=== PATIENT | female | born 1950 | race Caucasian/White ===

== ENCOUNTER 2018-03-22 09:26 | Observation (INO) ==
--- NOTE | 2018-03-22 09:43 | Emergency Department Note ---
Disposition Clinical Impression: Hypoglycemia Disposition: Admitted As Inpatient Condition: Fair Referrals: Radha Liriano [Primary Care Provider] - Forms: ED Satisfaction Letter, Work/School Release Time of Disposition: 10:15 General Adult HPI - General Chief complaint: ED General Medical Stated complaint: TIA/blood sugar Time Seen by Provider: 03/22/18 09:30 Source: patient, EMS Limitations: no limitations Nursing Notes Reviewed: Yes Vital Signs Reviewed: Yes - History of Present Illness HPI Narrative: Ms. Rocha woke up this morning urinated and had a bowel movement which was normal for her. She was eating breakfast and began to feel very nauseated. She did not have jeane emesis but does describe some regurgitation. No dizziness no lightheadedness no diaphoresis no shortness of breath. She remembers that she was in bed being helped up by her son and then the EMS personnel coming to transport her to the emergency department. At that point she had some heavy chest pain midsternum in the lower part of her chest. No radiation to either shoulder or neck and back or abdomen. This feature was elicited on direct questioning. She is new to [place] just moved here having been discharged from [facility] for a TIA from which she regained all functioning is able to walk normally. She has been on no new medications. 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 Denies: fever, chills Eyes: Denies: vision change ENT ED: Denies: dysphagia Cardiovascular: Reports: chest pain. Denies: palpitations Respiratory: Denies: cough, dyspnea Gastrointestinal: Reports: nausea, vomiting. Denies: abdominal pain, diarrhea, melena, hematochezia Genitourinary: Denies: urgency, dysuria, frequency Musculoskeletal: Denies: back pain, neck pain, arthralgia Neurological: Denies: headache Endocrine: Reports: fatigue Hematological/Lymphatic: Denies: easy bruising Past Medical History - Past Medical History Medical history: Reports: diabetes, hyperlipidemia, hypertension, TIA Psychiatric history: Reports: depression WOOD TREATING INSPECTOR history: Reports: no WOOD TREATING INSPECTOR history - Social History Smoking Status: Never smoker Smokeless Tobacco Status: No Alcohol use: Reports: none Drug use: Reports: none Physical Exam - General Limitations: no limitations General appearance: alert, in no apparent distress - Head Head exam: atraumatic, normocephalic - Eye Eye exam: Present: normal appearance, PERRL, EOMI - ENT ENT exam: normal oropharynx, mucous membranes moist, normal external ear exam - Neck Neck exam: Present: normal inspection, other (Supple). Absent: lymphadenopathy - Chest Chest inspection: Present: normal inspection, symmetric chest wall rise, tenderness (Mild pain to palpation mid sternum but she does not believe this reproduces the feeling of chest discomfort that she reports) - Respiratory Respiratory exam: Present: normal lung sounds bilaterally. Absent: respiratory distress, wheezes, stridor - Cardiovascular Cardiovascular exam: Present: regular rate, normal rhythm, normal heart sounds. Absent: systolic murmur, diastolic murmur - Abdominal Exam Abdominal exam: Present: soft, Non-Tender. Absent: distention, guarding, rebound, rigidity - Extremities Exam Extremities exam: Present: normal inspection. Absent: pedal edema - Neurological Exam Neurological exam: Present: alert, oriented X3, CN II-XII intact. Absent: motor sensory deficit - Psychiatric Psychiatric exam: Present: normal affect, normal mood Course Vital Signs Temperature 97.6 F 03/22/18 09:33 Pulse Rate 63 03/22/18 09:33 Respiratory Rate 18 03/22/18 09:33 Blood Pressure 166/106 03/22/18 09:33 O2 Sat by Pulse Oximetry 100 03/22/18 09:33 Temperature 97.6 F 03/22/18 09:33 Pulse Rate 64 03/22/18 10:04 Respiratory Rate 17 03/22/18 10:04 Blood Pressure 139/70 03/22/18 10:04 O2 Sat by Pulse Oximetry 97 03/22/18 10:04 Oxygen Delivery Oxygen Delivery Room Air Medical Decision Making - MDM Narrative Medical decision making narrative: Hypoglycemia. She is on glipizide ER which might help run the interventions to restore her blood sugar which was 103 shortly after arrival. She is alert and awake. Prudent to observe her and titrate diabetic medication. I spoke with the VEGETABLE INSPECTOR covering his hospitalist here at [place] and presented the case. He accepted admission. She is in improved condition awaiting transfer to the floor. Chest pain. This dissipated to almost negligible when I reassessed her. EKG does have some evidence of ischemia but I do not have any comparison. It might be prudent to cycle her troponins during her period of observation. Bradycardia. She was on metoprolol. We might want to consider cutting that dose on admission and check her heart rate. - Lab Data Lab results reviewed: Yes I reviewed the patient's lab results. Result diagrams: 03/22/18 09:47 03/22/18 09:47 Lab Results 03/22/18 03/22/18 03/22/18 Range/Units 09:47 09:47 09:47 WBC 6.7 (4.3-11.1) K/mcL RBC 4.00 (3.82-4.97) M/mcL Hgb 12.1 (11.5-15.4) g/dL Hct 34.9 L (35.3-44.9) % MCV 87.3 (83.0-100.0) fL MCH 30.3 (28.0-33.3) pg MCHC 34.7 (31.6-35.5) g/dL RDW 12.1 (11.5-14.5) % Plt Count 179 (140-400) K/mcL MPV 11.5 (9.4-12.4) fL Immature Gran % 0.3 (0-4) % Seg Neutrophils % 74.4 % Lymphocytes % 18.6 % Monocytes % 5.6 % Eosinophils % 0.7 % Basophils % 0.4 % Neutrophils # 5.0 (1.6-8.9) K/mcL Lymphocytes # 1.3 (0.6-4.6) K/mcL Monocytes # 0.4 (0.0-1.3) K/mcL Eosinophils # 0.1 (0.0-0.6) K/mcL Basophils # 0.0 (0.0-0.2) K/mcL PT 11.3 (9.4-12.1) Seconds INR 1.0 APTT 35.9 (26.0-36.0) Seconds Sodium (136-145) mEq/L Potassium (3.5-5.1) mEq/L Chloride (98-107) mEq/L Carbon Dioxide (23-29) mEq/L BUN (8-23) mg/dL Creatinine (0.60-1.20) mg/dL Est GFR ( Amer) (> 60) Est GFR (Non-Af Amer) (> 60) BUN/Creatinine Ratio (6-26) Glucose (70-105) mg/dL Calculated Osmolality (280-300) Calcium (8.6-10.3) mg/dL Magnesium (1.6-2.6) mg/dL Total Bilirubin (0.3-1.0) mg/dL AST (13-39) Units/L ALT (7-52) Units/L Alkaline Phosphatase (34-104) Units/L Troponin I < 0.03 (< 0.04) ng/mL Serum Total Protein (6.4-8.9) g/dL Albumin (3.5-5.7) g/dL Globulin (2.4-3.5) g/dL Albumin/Globulin Ratio (1.1-2.2) 03/22/18 Range/Units 09:47 WBC (4.3-11.1) K/mcL RBC (3.82-4.97) M/mcL Hgb (11.5-15.4) g/dL Hct (35.3-44.9) % MCV (83.0-100.0) fL MCH (28.0-33.3) pg MCHC (31.6-35.5) g/dL RDW (11.5-14.5) % Plt Count (140-400) K/mcL MPV (9.4-12.4) fL Immature Gran % (0-4) % Seg Neutrophils % % Lymphocytes % % Monocytes % % Eosinophils % % Basophils % % Neutrophils # (1.6-8.9) K/mcL Lymphocytes # (0.6-4.6) K/mcL Monocytes # (0.0-1.3) K/mcL Eosinophils # (0.0-0.6) K/mcL Basophils # (0.0-0.2) K/mcL PT (9.4-12.1) Seconds INR APTT (26.0-36.0) Seconds Sodium 131 L (136-145) mEq/L Potassium 4.1 (3.5-5.1) mEq/L Chloride 97 L (98-107) mEq/L Carbon Dioxide 25 (23-29) mEq/L BUN 14 (8-23) mg/dL Creatinine 1.27 H (0.60-1.20) mg/dL Est GFR ( Amer) 51 L (> 60) Est GFR (Non-Af Amer) 42 L (> 60) BUN/Creatinine Ratio 11 (6-26) Glucose 186 H (70-105) mg/dL Calculated Osmolality 277 L (280-300) Calcium 9.5 (8.6-10.3) mg/dL Magnesium 1.5 L (1.6-2.6) mg/dL Total Bilirubin 0.5 (0.3-1.0) mg/dL AST 17 (13-39) Units/L ALT 9 (7-52) Units/L Alkaline Phosphatase 105 H (34-104) Units/L Troponin I (< 0.04) ng/mL Serum Total Protein 6.3 L (6.4-8.9) g/dL Albumin 3.7 (3.5-5.7) g/dL Globulin 2.6 (2.4-3.5) g/dL Albumin/Globulin Ratio 1.4 (1.1-2.2) - Radiology Data Radiology results reviewed: Yes I reviewed the patient's radiology results. - EKG Data EKG #1 EKG attestation: Yes I reviewed and interpreted this EKG. EKG results narrative: EKG as interpreted by me sinus bradycardia 49 bpm T-wave inversion in leads 3 aVF of 1 box in aVF. Similar T-wave inversion in V3 V4. No ST elevation or depression. Left axis deviation. No evidence of hypertrophy. No comparison available.
[2018-03-22] MEDS ORDERED: Ondansetron 4 MG/2 ML VIAL IVP ONE (09:45)
[2018-03-22 10:00] LABS: Basophils % 0.4 %; Eosinophils # 0.1 K/mcL (0.0-0.6); Eosinophils % 0.7 %; Hematocrit 34.9 % (35.3-44.9); Hemoglobin 12.1 g/dL (11.5-15.4); Immature Granulocytes % 0.3 % (0-4); Lymphocytes # 1.3 K/mcL (0.6-4.6); Lymphocytes % 18.6 %; Mean Corpuscular HGB Conc 34.7 g/dL (31.6-35.5); Mean Corpuscular Hemoglobin 30.3 pg (28.0-33.3); Mean Corpuscular Volume 87.3 fL (83.0-100.0); Mean Platelet Volume 11.5 fL (9.4-12.4); Monocytes # 0.4 K/mcL (0.0-1.3); Monocytes % 5.6 %; Platelet Count 179 K/mcL (140-400); Red Cell Distribution Width 12.1 % (11.5-14.5); Segmented Neutrophils % 74.4 %
[2018-03-22 10:02] LABS: Prothrombin Time 11.3 Seconds (9.4-12.1)
[2018-03-22 10:04] LABS: Activated Partial Thrombo Time 35.9 Seconds (26.0-36.0)
[2018-03-22 10:09] LABS: Albumin 3.7 g/dL (3.5-5.7); Albumin/Globulin Ratio 1.4 (1.1-2.2); Bilirubin,Total 0.5 mg/dL (0.3-1.0); Calcium 9.5 mg/dL (8.6-10.3); Globulin 2.6 g/dL (2.4-3.5); Magnesium 1.5 mg/dL (1.6-2.6); Potassium 4.1 mEq/L (3.5-5.1); Total Protein 6.3 g/dL (6.4-8.9)
[2018-03-22] MEDS ORDERED: Dextrose Gel 15 GM/37.5 ML TUBE PO PRN ×2 (12:03)
[2018-03-22] MEDS ORDERED: *HR* Dextrose 50 % in Water (Syg) 50 ML SYRINGE IVP PRN (12:03)
[2018-03-22] MEDS ORDERED: D5% in Water 1,000 ML IVC PRN (12:03)
[2018-03-22] MEDS ORDERED: Naloxone 0.4 MG/ML INJ IVP PRN (12:13)
[2018-03-22] MEDS ORDERED: Acetaminophen 325 MG TABLET PO PRN (12:13)
--- NOTE | 2018-03-22 13:19 | Internal Med History&Physical ---
Date of Encounter: 03/22/18 Time of Encounter: 13:16 Assessment and Plan (1) Diabetes Current visit: Yes Status: Chronic Patient was admitted to this facility through the emergency department after experiencing nausea at home and found to have a glucose less than 50 on presentation. Patient was treated with D50 and emergency department with her glucose rebounding to greater than 100. Patient currently on glyburide ER and concerns were presented about possibly having repeated hypoglycemia due to continued effects of her long-acting medications. Patient was admitted for observation overnight. Continue with glucose monitoring with fingersticks before meals and at bedtime and will cover with sliding scale insulin at the conservative dosing. Patient will be restarted on her oral medications tomorrow after evaluation. Patient's glucose upon arrival to this floor was 219. Patient's placed on a diabetic diet and currently denies any further nausea. Patient with a home medication of Aricept and family has presented some concerns about her self dosing. Qualifiers: Diabetes mellitus type: type 2 Diabetes mellitus long-term insulin use: without long-term use Diabetes mellitus complication status: with unspecified complications Qualified Code(s): E11.8 - Type 2 diabetes mellitus with unspecified complications (2) Chest pain Current visit: Yes Status: Acute Patient had had a complaint of chest pressure which resolved upon arrival to emergency department. Patient had an EKG which showed possible mild ischemia in several leads, but no other existing EKGs were available for comparison. Patient's heart rate was sinus bradycardic at 50-60, but patient currently is on metoprolol. Patient denies any cardiac history. Currently denies any chest discomforts or palpitations. Vital signs been stable. Initial troponin ER was negative. We will continue with serial troponins and repeat EKG in the morning. Qualifiers: Chest pain type: unspecified Qualified Code(s): R07.9 - Chest pain, unspecified (3) HTN (hypertension) Current visit: Yes Status: Chronic Patient with a history of hypertension. Currently vital signs are stable. We will continue with current home medications. Qualifiers: Hypertension type: essential hypertension Qualified Code(s): I10 - Essential (primary) hypertension (4) Dementia Current visit: Yes Status: Chronic Patient currently is on Aricept. Patient lives with her children and statements were made about concerns of patient self administering her medications. Patient's family stated that they were in the process of SNF placement. We will consult social service to evaluate. Qualifiers: Dementia type: unspecified type Dementia behavioral disturbance: without behavioral disturbance Qualified Code(s): F03.90 - Unspecified dementia without behavioral disturbance Internal Medicine - H&P: HPI Chief complaint: hypoglycemia Admitted From: Home Plans for Post Hospital Care: Home History of present illness: Ms. Rocha is a 67 year old female, who was eating breakfast and began to feel very nauseated. She did not have jeane emesis but does describe some regurgitation. No dizziness no lightheadedness no diaphoresis no shortness of breath. At that point she had some heavy chest pain midsternum in the lower part of her chest with no radiation to either shoulder or neck and back or abdomen. Her son called EMS and she was transported to [place] [facility]. She is new to [place] just moved here having been discharged from [facility] for a TIA from which she regained all functioning is able to walk normally. Per family reports, she was being evaluated for placement to an area SNF. She has a history of mild dementia. She has been on no new medications. Per ED report, she had a glucose <50 on arrival and was giving D50, which retored her blood sugar to 103. She is on glipizide ER which caused concerns about her being able to maintain her glucose throughout the rest of day. Patient had reported chest pain prior when at home and this dissipated upon arrival to ED. EKG showed sinus bradycardia and does have some evidence of possbile ischemia. Patient is on metoprolol. EKG as interpreted by ED physician stated sinus bradycardia 49 bpm T-wave inversion in leads 3 aVF of 1 box in aVF. Similar T-wave inversion in V3 V4. No ST elevation or depression. Left axis deviation. No evidence of hypertrophy. No comparison available. Patient was placed on cardiac catheterization technologist here on the unit which shows sinus bradycardia at 55-60 bpm. No ectopy noted or pauses. Vital signs are stable. Patient appears relaxed, but does complain of burning to her bilateral toes. Patient endorses a history of neuropathy. She currently denies any other discomforts or shortness of breath. Patient's glucose was checked prior to her noon meal which showed a glucose of 219. Patient states that she has not had any other episodes that she can remember and watch her glucose has dropped. Patient noted to have some difficulty in hesitation with answering complex questions. Patient is currently on Aricept and family has expressed concerns about patient's self administration of medications. Patient denies any fever or chills. Patient denies any productive cough or current chest discomforts. Denies palpitations. Denies any dysuria. Past Med Surg Social Fam HX - Past Medical History Medical history: diabetes, hyperlipidemia, hypertension, TIA Psychiatric history: depression - Past Surgical History Surgical History: coronary bypass (CABG) Additional surgical history: triple by-pass - Social History Smoking Status: Never smoker Smokeless Tobacco Status: No Alcohol use: none Drug use: none - Family History Mother Adopted: No Living Status: Hx Family Endocrine Disorder: Yes ( from diabetes) Internal Medicine - H&P: Meds Donepezil HCl [Aricept] 5 mg PO HS 03/09/18 [History] Escitalopram [Lexapro] 10 mg PO DAILY 03/09/18 [History] glipiZIDE [Glipizide ER] 10 mg PO DAILY 03/09/18 [History] metFORMIN [Glucophage] 1,000 mg PO BIDWM 03/09/18 [History] Atorvastatin [Lipitor] 20 mg PO HS 03/22/18 [History] Metoprolol [Lopressor] 100 mg PO BID 03/22/18 [History] 3 Allergy/AdvReac Type Severity Reaction Status Date / Time niacin Allergy Rash Verified 03/22/18 09:33 All Systems PM: A 10-system review of systems was performed and is negative for pertinent findings except as documented above in the HPI. - Constitutional Constitutional: as per HPI, no chills, no fever(s), no night sweats - EENT Eyes: no change in vision, no discharge, no pain, no photophobia Ears: no ear discharge, no ear pain, no tinnitus Nose, mouth and throat: no dysphagia, no nasal discharge, no neck pain, no sore throat - Cardiovascular Cardiovascular ROS IM: as per HPI, no chest pain, no diaphoresis, no dyspnea, no lightheadedness, no palpitations, no syncope - Respiratory Respiratory: as per HPI, no cough, no dyspnea, no wheezing, no excessive phlegm production - Gastrointestinal Gastrointestinal: no abdominal pain, no diarrhea, no hematemesis, no hematochezia, no melena, no nausea, no vomiting - Genitourinary Genitourinary: no change in urinary stream, no dysuria, no flank pain, no hematuria - Musculoskeletal Musculoskeletal ROS IM: no numbness, no tingling - Integumentary Integumentary IM: no rash, no unusual bruising - Neurological Neurological ROS: no confusion, no convulsions, no focal weakness, no numbness, no tingling, no tremor(s) - Hematologic/Lymphatic Hematologic/Lymphatic: no easy bruising - Constitutional Vitals: Temp Pulse Resp BP Pulse Ox 97 F L 64 16 147/60 97 03/22/18 11:18 03/22/18 10:04 03/22/18 11:18 03/22/18 11:18 03/22/18 10:04 General appearance: Present: A&O X 3, pleasant - Head Head exam: Present: atraumatic, normocephalic - Eye Eye exam: Present: PERRL, conjuntiva pink, sclera anicteric Pupils: Present: PERRL - Neck Neck exam general surgery: Present: supple, trachea midline. Absent: lymphadenopathy - Respiratory Respiratory exam: Present: CTAB. Absent: accessory muscle use, rales, rhonchi, wheezes - Cardiovascular Cardiovascular exam: Present: RRR, +S1, +S2. Absent: diastolic murmur, gallop, rubs, systolic murmur - GI/Abdominal GI/Abdominal exam: Present: normal bowel sounds, soft, no peritoneal signs. Absent: distended, tenderness - Extremities Exam Extremities exam: Present: warm, radial pulses palpable and symmetrical. Absent : calf tenderness, cyanotic, pedal edema - Neurological Exam Neurological exam: Present: CN II-XII intact, oriented X3, no focal deficits. Absent: pronater drift, facial droop, speech deficit - Skin Skin exam: Present: dry, intact Internal Med - H&P Results - Labs CBC & Chem 7: 03/22/18 09:47 03/22/18 09:47
--- NOTE | 2018-03-22 17:04 | Electrocardiograph Report ---
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
[2018-03-22] MEDS: *HR* Metformin 500 MG TABLET PO SCH (17:09)
[2018-03-22] MEDS: Insulin LISPRO 300 UNITS/3 ML VIAL SQ SCH (17:10)
[2018-03-22] MEDS ORDERED: Magnesium Sulfate 1 GM in D5% in Water 100 ML IVPB ONE (20:33)
[2018-03-22] MEDS ORDERED: Insulin LISPRO 300 UNITS/3 ML VIAL SQ SCH (21:00)
[2018-03-23 06:30] LABS: Basophils % 0.5 %; Eosinophils # 0.2 K/mcL (0.0-0.6); Eosinophils % 3.2 %; Hematocrit 32.6 % (35.3-44.9); Hemoglobin 11.3 g/dL (11.5-15.4); Immature Granulocytes % 0.3 % (0-4); Lymphocytes # 1.8 K/mcL (0.6-4.6); Lymphocytes % 29.7 %; Mean Corpuscular HGB Conc 34.7 g/dL (31.6-35.5); Mean Corpuscular Hemoglobin 30.2 pg (28.0-33.3); Mean Corpuscular Volume 87.2 fL (83.0-100.0); Mean Platelet Volume 11.8 fL (9.4-12.4); Monocytes # 0.5 K/mcL (0.0-1.3); Monocytes % 8.1 %; Neutrophils # 3.6 K/mcL (1.6-8.9); Platelet Count 166 K/mcL (140-400); Red Blood Count 3.74 M/mcL (3.82-4.97); Red Cell Distribution Width 12.1 % (11.5-14.5); Segmented Neutrophils % 58.2 %
[2018-03-23 06:40] LABS: Albumin 3.2 g/dL (3.5-5.7); Albumin/Globulin Ratio 1.3 (1.1-2.2); Bilirubin,Total 0.5 mg/dL (0.3-1.0); Globulin 2.4 g/dL (2.4-3.5); Magnesium 1.6 mg/dL (1.6-2.6); Potassium 3.6 mEq/L (3.5-5.1); Total Protein 5.6 g/dL (6.4-8.9)
[2018-03-23] MEDS: Insulin LISPRO 300 UNITS/3 ML VIAL SQ SCH ×2 (07:54→11:39)
[2018-03-23] MEDS: *HR* Metformin 500 MG TABLET PO SCH (08:02)
[2018-03-23 11:36] VITALS: BP 135/69
--- NOTE | 2018-03-23 12:31 | Discharge Summary ---
- NOTES TO OUTPATIENT PROVIDER Notes to Outpatient Provider: Patient is undergoing evaluation for usp placement but this could not be arranged from this facility, at this time. Orders not resulted at time of discharge: Pending orders 03/23/18 06:00 ECG 12 lead ECG [ECG] AM 0600 Date of Encounter: 03/23/18 Time of Encounter: 11:00 - Discharge Diagnosis (1) Hypoglycemia Priority: Primary Status: Acute Comments: Patient with mild hypoglycemia and was kept in observation status. She had improvement in her blood sugars and felt asymptomatic. She was confused and remains confused. Apparently, this is back to baseline. (2) Chest pain Priority: Secondary Status: Acute Comments: This is atypical and of inconsistent history, but troponins were negative 3 and the patient did well overnight. She denies chest pressure or pain, to me both last evening and this morning. Qualifiers: Chest pain type: unspecified Qualified Code(s): R07.9 - Chest pain, unspecified (3) HTN (hypertension) Priority: Secondary Status: Chronic Comments: Clinically stable. Qualifiers: Hypertension type: essential hypertension Qualified Code(s): I10 - Essential (primary) hypertension (4) Diabetes Priority: Secondary Status: Chronic Comments: We will discontinue her sulfonylurea and continue her Glucophage. Family will need to watch blood sugar frequently at home. Qualifiers: Diabetes mellitus type: type 2 Diabetes mellitus supervisor intermediates insulin use: without mcfp use Diabetes mellitus complication status: with unspecified complications Qualified Code(s): E11.8 - Type 2 diabetes mellitus with unspecified complications (5) Dementia Priority: Secondary Status: Chronic Comments: Apparently at baseline. Qualifiers: Dementia type: unspecified type Dementia behavioral disturbance: without behavioral disturbance Qualified Code(s): F03.90 - Unspecified dementia without behavioral disturbance Hospital course: Ms. Rocha is a 67 year old female with hypoglycemic episode. She is somewhat confused and is unable to give a good history of any symptoms with slight left to this. In addition, she had atypical chest tightness which was inconsistent in her report to providers. Her troponins were negative. She is back to baseline, apparently, and will be discharged home. Patient has no complaint of chest discomfort, dyspnea, orthopnea, palpitations, nausea or vomiting, constipation or diarrhea, other changes in bowel habits, difficulty with urination, rash or itching, or other new complaints, except as mentioned above. Review of systems is otherwise negative. I discussed management of her care with nursing staff. - Time Spent with Patient Total time spent providing and/or coordinating discharge services: - Discharge Medications Home Medications: Donepezil HCl [Aricept] 5 mg PO HS 03/09/18 [History] Escitalopram [Lexapro] 10 mg PO DAILY 03/09/18 [History] metFORMIN [Glucophage] 1,000 mg PO BIDWM 03/09/18 [History] Atorvastatin [Lipitor] 20 mg PO HS 03/22/18 [History] Metoprolol [Lopressor] 100 mg PO BID 03/22/18 [History] Allergies/Adverse Reactions: 3 Allergy/AdvReac Type Severity Reaction Status Date / Time niacin Allergy Rash Verified 03/22/18 09:33 Date of admission: 03/22/18 11:03 Primary care physician: Radha Liriano Consults: 03/22/18 12:32 Consult to Veneer Stock Grader [CONS] Routine Reason for SW Consult: patient oringinally going to [facility] prior to admit Discharging clinician: Giovanni Head Anticipated date of discharge: 03/23/18 - Constitutional Vitals: Temp Pulse Resp BP Pulse Ox 98.6 F 61 17 135/69 96 03/23/18 11:36 03/23/18 11:36 03/23/18 11:36 03/23/18 11:36 03/23/18 11:36 General appearance: Present: pleasant Exam: Examination: (Except as mentioned above): General: In no apparent distress. Alert and oriented 1, only, per baseline. Nondiaphoretic. Head: Atraumatic and normocephalic. Respiratory: No use of accessory muscles. Lungs are clear throughout. Normal airflow. Cardiovascular: Regular rate and rhythm without murmur appreciated. Abdomen: Bowel sounds are normal. No hepatosplenomegaly mass or tenderness appreciated. Obese and therefore difficult to palpate deeply. Extremities: No cyanosis clubbing or edema. Skin: Warm and non-diaphoretic with no new lesions noted. - Patient Status Disposition: Home, Self-Care Condition: Fair Functional capacity at discharge: independent ambulation Overall status at discharge: patient is progressing back to baseline - Discharge Instructions Follow Up With: Knisley,Rdaha S [Primary Care Provider] - - Diet and Activity Activity: increase activity as tolerated Diet: diabetic diet
--- NOTE | 2018-03-25 17:34 | Electrocardiograph Report ---
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: : 1950 Requested By: Duran Diaz Order Number: [id number] Reading MD: Scarlett Nick Measurements Intervals [place] Rate: 54 P: -34 IL: 213 QRS: -22 QRSD: 75 T: -48 QT: 427 QTc: 412 Interpretive Statements SINUS BRADYCARDIA WITH FIRST DEGREE AV BLOCK LOW QRS VOLTAGE IN PRECORDIAL LEADS [QRS DEFLECTION < 1.0 mV IN CHEST LEADS] POSSIBLE ANTERIOR MYOCARDIAL INFARCTION [30 ms Q WAVE IN V3/V4, OR R < 0.2 mV IN V4], OF INDETERMINATE AGE INFERIOR MYOCARDIAL INFARCTION [40+ ms Q WAVE AND/OR ST/T ABNORMALITY IN II/aVF], OF INDETERMINATE AGE Electronically Signed On 03-25-2018 17:32:31 EDT by Scarlett Nick
== END 2018-03-23 14:15 ==
LOC: INPGRE 09:26 → EMEROOGRE 09:26 → INPGRE 11:25